=== PATIENT | male | born 1950 | race Caucasian/White ===

== ENCOUNTER 2017-02-12 08:49 | Day surgery (SDC) | payer OTHER ==
[2017-02-11 11:40] VITALS: Ht 175.3 cm; Wt 90.0 kg
[~2017-02-12] VITALS: Ht 175.3 cm; Wt 90.0 kg
[2017-02-12] VITALS (14 sets, daily range): BP systolic 117–151; BP diastolic 63–75; PULSE 70–90; RESP 13–26
[~2017-02-12 08:49] MED LIST: DESFLURANE 15 MIN ONE
[2017-02-12] MEDS ORDERED: CEFAZOLIN 2 GM/50 ML (PMX) 50 ML IVPB ONE (09:00)
[2017-02-12] MEDS ORDERED: LACTATED RINGER'S 1,000 ML IV* ONE (09:00)
[2017-02-12] MEDS ORDERED: LISI40TA9 PO (09:20)
[2017-02-12] MEDS ORDERED: METO50TA16 PO (09:20)
[2017-02-12] MEDS ORDERED: POLYMYXIN/BACITRACIN 1L IRRIG ONE (10:48)
[2017-02-12] MEDS ORDERED: METOCLOPRAMIDE 10 MG INJ ONE (11:34)
[2017-02-12] MEDS ORDERED: MIDAZOLAM 1 MG/ML 2 ML INJ ONE (11:34)
[2017-02-12] MEDS ORDERED: KETOROLAC 30 MG INJ ONE ×2 (11:35→12:31)
[2017-02-12] MEDS ORDERED: PROPOFOL 20 ML ONE ×2 (11:35→12:06)
--- NOTE | 2017-02-12 11:35 | HPN ---
Date/Time of Note Date/Time of Note DATE: 02/12/17 TIME: 11:34 Interval H&P Admission Note Pt. seen H&P reviewed: No system changes MIKO HAYNES MD Feb 12, 2017 11:35
[2017-02-12] MEDS ORDERED: FENTAnyl 50 MCG/ML VIAL ONE (11:40)
[2017-02-12] MEDS ORDERED: CEFAZOLIN 1 GM INJ ONE (11:47)
[2017-02-12] MEDS ORDERED: EPHEDrine SULFATE 50 MG/5 ML SYG ONE (12:09)
[2017-02-12] MEDS ORDERED: MEPERIDINE 25 MG INJ IV PRN (12:30)
[2017-02-12] MEDS ORDERED: DIPHENHYDRAMINE 50 MG INJ IV PRN (12:30)
[2017-02-12] MEDS ORDERED: HYDROmorphONE (0.2 MG/ML) 10ML SYG IV PRN ×3 (12:30)
[2017-02-12] MEDS ORDERED: ONDANSETRON 4 MG INJ IV PRN ×2 (12:30→13:00)
[2017-02-12] MEDS ORDERED: METOCLOPRAMIDE 10 MG INJ IV PRN (12:30)
[2017-02-12] MEDS ORDERED: BUPIVACAINE 0.25%/EPI (SDV) 30 ML INJ ONE (12:37)
[2017-02-12] MEDS ORDERED: LIDOCAINE 1% (MPF) 30 ML INJ ONE (12:37)
[2017-02-12] MEDS ORDERED: LACTATED RINGER'S 1,000 ML IV SCH (12:53)
[2017-02-12] MEDS ORDERED: HYDROCODONE/APAP (5/325) TAB PO PRN ×2 (13:00)
[2017-02-12] MEDS ORDERED: morphine 2 MG INJ IV PRN (13:00)
--- NOTE | 2017-02-12 13:06 | OPR ---
Date/Time of Note Date/Time of Note DATE: 02/12/17 TIME: 12:58 Operative Report Procedure Date: Feb 12, 2017 Preoperative Diagnosis Right buttock chronic nonhealing ulcer with history of abscess that was drained in the past Postoperative Diagnosis Right buttock chronic nonhealing ulcer with history of abscess that was drained in the past. 4 x 3 x 5 cm Operation Performed 1. Excision of right buttock chronic ulcer including skin subcutaneous and fascia. 4 x 3 cm. 2. Multilayer closure of wound including fascia, 2 layers subcutaneous, dermal , skin 3. Local anesthetic [place], [id number] Surgeon: MIKO HAYNES MD Anesthesia: other (MAC and local) Anesthesiologist: CHRISTIANO DENT MD Estimated Blood Loss: 0 - 10 ml's Specimens Ulcer Tubes/Drains None Complications: None Pt Condition Post Procedure: stable Disposition: PACU Indications Patient with history of abscess that was drained in an outside hospital who presents with a chronic nonhealing right buttock ulcer. After multiple treatments she is now here for attempt at excision of the ulcer with primary closure. Risks include but are not limited to bleeding, infection, abscess, seroma, chronic wound, chronic pain, need for re-operations or further surgeries, ND, stroke, PE, DVT, pneumonia, organ failures, or even . Procedure Description Patient was brought in and placed supine on the operating table. SCDs were placed. After induction of anesthesia he was placed in the lateral decubitus with the right side up. All pressure points were well-padded. He was prepped and draped in usual sterile fashion. Timeout was performed. He artery received antibiotics. Probe was placed into the chronic ulcer and using electrocautery the ulcer was excised out fully including skin, subcutaneous, and fascia. Wound was fully irrigated with saline to clear suction and fluid. Complete hemostasis was obtained. Local anesthetic was injected at all levels. Wound was closed in multiple layers including fascia with 2-0 Vicryl followed by 2 layers of subcutaneous using the same suture. Dermal stitches were placed using 2-0 Vicryl again and finally skin was closed with vertical mattress 0 nylon. Dressing was applied. Patient was recovered and taken back to recovery room in stable condition. All counts were correct at the end the operation 2. MIKO HAYNES MD Feb 12, 2017 13:05
== END 2017-02-12 14:35 | disposition home or self-care (01) ==
LOC: SDS 08:49
PROVIDERS: ATTEND Surgery
DX: L90.5 Scar conditions and fibrosis of skin (principal); L98.419 Non-pressure chronic ulcer of buttock with unspecified severity; I10 Essential (primary) hypertension; E66.9 Obesity, unspecified; Z68.29 Body mass index [BMI] 29.0-29.9, adult
CPT/HCPCS: 11406; 12031; 88304; J0690; J1885; J2250; J2765; J3010; Z7512; Z7610

== ENCOUNTER 2017-02-28 09:20 | Inpatient (IN) | payer OTHER ==
[~2017-02-28] VITALS: Ht 172.7 cm; Wt 92.0 kg
[2017-02-28] VITALS (16 sets, daily range): BP systolic 92–137; BP diastolic 58–78; PULSE 58–82; RESP 15–27; TEMP 98.1; Ht 172.7 cm; Wt 92.0 kg
[~2017-02-28 09:20] MED LIST changes: -DESFLURANE 15 MIN ONE; +LIDOCAINE 2% (SDV) 5 ML INJ ONE; +LISI40TA9 PO; +METO50TA16 PO; +PROPOFOL 200 MG INJ ONE; +ROCURONIUM 50 MG INJ ONE; +SUCCINYLCHOLINE CHLORIDE 100 MG/5 ML SYG IV ONE
[2017-02-28] MEDS ORDERED: ONDANSETRON 4 MG INJ IV STA (10:36)
[2017-02-28 10:58] LABS: ADD SCAN DIFF NO
[2017-02-28] MEDS ORDERED: SOD CHLORIDE 0.9% 1,000 ML IV ONE (11:00)
[2017-02-28] MEDS ORDERED: morphine 10 MG INJ IV ONE (11:00)
[2017-02-28 11:03] LABS: ABNORMAL IP MESSAGE 1; BASOPHIL # 0.1 10^3/ul (0.0-0.1); BASOPHILS % 0.3 % (0.0-2.0); EOSINOPHILS # 1.3 10^3/ul (0.0-0.5); EOSINOPHILS % 5.9 % (0.0-7.0); HEMATOCRIT 50.1 % (42.0-52.0); HEMOGLOBIN 17.2 g/dl (14.0-18.0); LYMPHOCYTES # 3.5 10^3/ul (0.8-2.9); LYMPHOCYTES % 15.8 % (15.0-51.0); MEAN CORPUSCULAR HEMOGLOBIN 31.4 pg (29.0-33.0); MEAN CORPUSCULAR HGB CONC 34.3 g/dl (32.0-37.0); MEAN CORPUSCULAR VOLUME 91.6 fl (82.0-101.0); MEAN PLATELET VOLUME 9.4 fl (7.4-10.4); MONOCYTE # 2.5 10^3/ul (0.3-0.9); MONOCYTES % 11.3 % (0.0-11.0); NEUTROPHIL # 14.8 10^3/ul (1.6-7.5); NEUTROPHILS % 66.1 % (39.0-77.0); PLATELET COUNT 220 10^3/UL (140-415); RED BLOOD COUNT 5.47 10^6/ul (4.70-6.10); RED CELL DISTRIBUTION WIDTH 14.4 % (11.5-14.5); WHITE BLOOD COUNT 22.4 10^3/ul (4.8-10.8)
[2017-02-28 11:12] LABS: ALBUMIN 4.3 g/dl (3.3-4.9)
[2017-02-28 11:13] LABS: POTASSIUM 4.4 mmol/L (3.5-5.1)
[2017-02-28 11:15] LABS: BILIRUBIN,INDIRECT 1.9 mg/dl (0-1.1); BILIRUBIN,TOTAL 1.9 mg/dl (0.2-1.3); CREATININE 1.1 mg/dl (0.61-1.24)
[2017-02-28 11:16] LABS: ALBUMIN/GLOBULIN RATIO 1.34; CALCIUM 9.1 mg/dl (8.4-10.2); TOTAL PROTEIN 7.5 g/dl (6.1-8.1)
[2017-02-28] MEDS ORDERED: CEFEPIME 2GM/50 ML (PMX) 50 ML IVPB STA (11:25)
[2017-02-28] MEDS ORDERED: VANCOMYCIN 1 GM (PMX) 250 ML IVPB ONE (11:30)
[2017-02-28 11:36] LABS: ADD UMIC NO; URINE BILIRUBIN (Dip) NEGATIVE (NEGATIVE); URINE BLOOD (Dip) NEGATIVE (NEGATIVE); URINE COLOR LT. YELLOW (YELLOW); URINE GLUCOSE (Dip) NEGATIVE (NEGATIVE); URINE KETONES (Dip) NEGATIVE (NEGATIVE); URINE LEUKOCYTE ESTERASE (Dip) NEGATIVE (NEGATIVE); URINE NITRITE (Dip) NEGATIVE (NEGATIVE); URINE TOTAL PROTEIN (Dip) NEGATIVE (NEGATIVE); URINE UROBILINOGEN (Dip) 0.2 E.U./dL (0.1-1.0)
[2017-02-28] MEDS ORDERED: IOHEXOL 300MG/ML 150 ML BTL ONE (11:45)
[2017-02-28] MEDS ORDERED: SOD CHLORIDE 0.9% 100 ML ONE (11:45)
[2017-02-28] MEDS ORDERED: ACETAMINOPHEN 325 MG TAB PO PRN ×2 (12:00→17:30)
[2017-02-28] MEDS ORDERED: ONDANSETRON 4 MG INJ IV PRN ×4 (12:00→17:30)
--- NOTE | 2017-02-28 12:09 | ERA ---
ER Documentation Chief Complaint Date/Time DATE: 02/28/17 TIME: 12:09 Chief Complaint pt bib self with c/o wound check , abscess drained to buttock, HPI Patient is a 66-year-old male who presents with redness and swelling to the right buttock. He has been dealing with this for a few months and had a incision and drainage performed by Dr. Christian on February 12. However it has gotten worse and more swollen over the past few days. He has had fevers that started yesterday and he continued with fever today. He took Tylenol for the fever. It is painful and hurts to sit on it. ROS All systems reviewed and are negative except as per history of present illness. Medications Home Meds Reported Medications Lisinopril* (Lisinopril*) 40 Mg Tablet, 40 MG PO DAILY, #30 TAB 02/12/17 Metoprolol Succinate* (Toprol XL*) 50 Mg Tab.er.24h, 50 MG PO DAILY, #30 TAB 02/12/17 Allergies Allergies: Coded Allergies: No Known Allergy (Unverified , 02/11/17) PMhx/Soc History of Surgery: Yes (CHOLECYSTECTOMY,RT BUTTOCK WOUND SURGERY) Anesthesia Reaction: No Hx Neurological Disorder: No Hx Respiratory Disorders: No Hx Cardiac Disorders: Yes (HTN) Hx Psychiatric Problems: No Hx Miscellaneous Medical Probl: Yes (OBESITY) Hx Alcohol Use: No Hx Substance Use: No Hx Tobacco Use: No Smoking Status: Never smoker FmHx Family History: No diabetes Physical Exam Vitals Vital Signs Date Time Temp Pulse Resp B/P Pulse Ox O2 Delivery O2 Flow Rate FiO2 02/28/17 09:24 98.3 84 18 146/70 98 Physical Exam Const: No acute distress Head: Atraumatic Eyes: Normal Conjunctiva ENT: Normal External Ears, Nose and Mouth. Neck: Full range of motion..~ No meningismus. Resp: Clear to auscultation bilaterally Cardio: Regular rate and rhythm, no murmurs Abd: Soft, non tender, non distended. Normal bowel sounds Skin: 10 x 10 cm area of the right buttock which is indurated, no obvious fluctuance consistent with cellulitis Back: No midline or flank tenderness Ext: No cyanosis, or edema Neur: Awake and alert Psych: Normal Mood and Affect Result Diagram: 02/28/17 1045 02/28/17 1045 Results 24 hrs Laboratory Tests Test 02/28/17 10:45 White Blood Count 22.410^3/ul Red Blood Count 5.4710^6/ul Hemoglobin 17.2g/dl Hematocrit 50.1% Mean Corpuscular Volume 91.6fl Mean Corpuscular Hemoglobin 31.4pg Mean Corpuscular Hemoglobin Concent 34.3g/dl Red Cell Distribution Width 14.4% Platelet Count 23200^3/UL Mean Platelet Volume 9.4fl Neutrophils % 66.1% Lymphocytes % 15.8% Monocytes % 11.3% Eosinophils % 5.9% Basophils % 0.3% Nucleated Red Blood Cells % 0.0/100WBC Neutrophils # 14.810^3/ul Lymphocytes # 3.510^3/ul Monocytes # 2.510^3/ul Eosinophils # 1.310^3/ul Basophils # 0.110^3/ul Nucleated Red Blood Cells # 0.010^3/ul Urine Color LT. YELLOW Urine Clarity CLEAR Urine pH 5.5 Urine Specific [place] <=1.005 Urine Ketones NEGATIVE Urine Nitrite NEGATIVE Urine Bilirubin NEGATIVE Urine Urobilinogen 0.2 E.U./dL Urine Leukocyte Esterase NEGATIVE Urine Hemoglobin NEGATIVE Urine Glucose NEGATIVE% Urine Total Protein NEGATIVE Sodium Level 138mmol/L Potassium Level 4.4mmol/L Chloride Level 97mmol/L Carbon Dioxide Level 27mmol/L Anion Gap 18 Blood Urea Nitrogen 17mg/dl Creatinine 1.10mg/dl Glucose Level 117mg/dl Calcium Level 9.1mg/dl Total Bilirubin 1.9mg/dl Direct Bilirubin 0.00mg/dl Indirect Bilirubin 1.9mg/dl Aspartate Amino Transf (AST/SGOT) 39IU/L Alanine Aminotransferase (ALT/SGPT) 66IU/L Alkaline Phosphatase 74IU/L Total Protein 7.5g/dl Albumin 4.3g/dl Globulin 3.20g/dl Albumin/Globulin Ratio 1.34 Current Medications Medications (Trade) Dose Ordered Sig/Amie Route PRN Reason Start Time Stop Time Status Last Admin Dose Admin Sodium Chloride (NS) 1,000 ml @ 1,000 mls/hr Q1H ONCE IV 02/28/17 11:00 02/28/17 11:59 DC 02/28/17 10:49 Morphine Sulfate (morphine) 6 mg ONCE ONCE IV 02/28/17 11:00 02/28/17 11:01 DC 02/28/17 10:49 Ondansetron HCl 4 mg 4 mg ONCE STAT IV 02/28/17 10:36 02/28/17 10:38 DC 02/28/17 10:49 Cefepime HCl 50 ml @ 100 mls/hr ONCE STAT IVPB 02/28/17 11:25 02/28/17 11:54 DC 02/28/17 11:33 Vancomycin HCl (Vancocin) 250 ml @ 125 mls/hr ONCE ONCE IVPB 02/28/17 11:30 02/28/17 13:29 Ondansetron HCl (Zofran Inj) 4 mg BRIDGE ORDER PRN IV NAUSEA AND/OR VOMITING 02/28/17 12:00 03/01/17 11:59 Acetaminophen (Tylenol Tab) 650 mg ER BRIDGE PRN PO MILD PAIN/FEVER 02/28/17 12:00 03/01/17 11:59 IV Flush 10 ml 10 ml STK-MED ONCE .ROUTE 02/28/17 11:45 02/28/17 11:46 DC 02/28/17 12:03 Sodium Chloride (NS) 100 ml @ ud STK-MED ONCE .ROUTE 02/28/17 11:45 02/28/17 11:46 DC 02/28/17 12:03 Iohexol (Omnipaque 300mg/ ml) 150 ml STK-MED ONCE .ROUTE 02/28/17 11:45 02/28/17 11:46 DC 02/28/17 12:04 Procedures/MDM Patient is a 66-year-old male presents with a persistent buttock cellulitis. The patient has an elevated white blood cell count of 22.4. At this point I doubt sepsis. The patient was given broad-spectrum antibiotics with vancomycin and cefepime. I spoke with Dr. Christian from surgery who will see the patient in consultation. He recommended a CT scan to evaluate for persistent abscess. I also ordered an ultrasound. The patient will be admitted to the panel team as he [facility] I spoke with Dr. Egnland for admission. He will require inpatient admission for IV antibiotics and surgical consultation. Departure Diagnosis: Primary Impression: Cellulitis Qualified Code: L03.317 - Cellulitis of buttock Condition: EZEQUIEL Poole MD Feb 28, 2017 12:09
--- NOTE | 2017-02-28 12:21 | RADRPT ---
PROCEDURE: CT Abdomen and Pelvis with contrast. CLINICAL INDICATION: Pain. Wound/ drained abscess in the right buttock. TECHNIQUE: CT scan of the abdomen and pelvis with contrast was performed on a multi-detector high- resolution CT scanner. The patient was scanned following the uncomplicated intravenous administrati on of 100 cc of Omnipaque 300. Coronal and sagittal reformatted images were obtained from the axial source images. Images were reviewed on a high-resolution PACS workstation. The total exam CTDI equa ls 13.71 mGy and the total exam DLP equals 940.81 mGy-cm. One or more of the following dose reduction techniques were used: Automated exposure control. Adjustment of the mA and/or kV according to patient size. Use of iterative reconstruction technique. COMPARISON: None. FINDINGS: CT abdomen: The lung bases are remarkable for posterior dependent atelectasis. The heart size is normal, withou t pericardial thickening or effusion. The liver is normal in size and density without focal mass or intrahepatic biliary dilatation. The spleen is normal in size and homogeneous in density. The sto mach is partially collapsed, but is grossly unremarkable. The pancreas as visualized is normal. Th ere are surgical clips in the gallbladder fossa. There is approximately 1.5 cm hyperdense structure in the gallbladder fossa. There is no fluid collection in the surgical bed. There is no evidence fo r biliary dilatation. The adrenal glands are symmetric and normal. The kidneys are symmetrically u nremarkable as well. No renal calculus or obstructive uropathy or mass lesion is seen. There are mu ltiple bilateral renal cysts measures up to 3.5 cm in the lower pole right kidney. The aorta is of normal caliber. Aortic vascular calcifications are present. There is no retroperit warner lymphadenopathy. The dale hepatis region is clear. There is diverticulosis of the descendin g and sigmoid colon without evidence of acute diverticulitis. CT pelvis: There is approximately 4.4 x 3.2 cm fluid collection in the right gluteal region with surrounding fa tty stranding and soft tissue swelling and significant thickening of the overlying skin. Multiple i njection granulomas are seen in the bilateral gluteal regions. The small bowel loops situated with in the pelvis are unremarkable. The pelvic organs are normal. The pelvic sidewalls and inguinal re gions are clear. The sigmoid colon and rectum are remarkable for sigmoid diverticulosis. No mass, lymphadenopathy, or free fluid is seen. No acute inflammation is seen. The bladder is normal. The surrounding osseous structures are unremarkable. No osteolytic or osteoblastic lesion is detected. IMPRESSION: 1. Approximately 4.4 x 3.2 cm fluid collection in the right gluteal region with surrounding subcuta neous fatty inflammation and overlying skin thickening. Multiple injection granulomas are seen in b ilateral gluteal region. Right gluteus tiffany muscle is atrophic. 2. Status post prior cholecystectomy. Approximately 1.5 cm amorphous hyperdense structure in the g allbladder fossa which could represent old hematoma /postsurgical scar versus retained stone. No flu id collection is identified. 3. Diverticulosis of the descending and sigmoid colon without evidence of acute diverticulitis. 4. Bilateral renal cysts. 5. Scattered aortoiliac atherosclerosis. RPTAT: BB .Shira Knowles MD, Date Time Electronically viewed and signed by .Shira Knowles MD, on 02/28/2017 12:21 .O/
--- NOTE | 2017-02-28 13:46 | RADRPT ---
PROCEDURE: Ultrasound right buttocks CLINICAL INDICATION: Fell. Right buttocks ulcer. Cellulitis versus abscess. TECHNIQUE: Sonographic evaluation of the right buttocks was performed with gonzalez scale and color im aging. Images were reviewed on a high-resolution PACS workstation. COMPARISON: None available FINDINGS: There is subcutaneous edema in the right buttocks region. Deep to the subcutaneous tissues there is a 4.9 x 2.5 x 2.5 cm irregular fluid collection with some internal debris noted. No solid mass or vascular abnormality is appreciated IMPRESSION: 1. 4.9 x 2.5 x 2.5 cm subcutaneous collection containing some debris. This could represent a hemat sylvester versus an inflammatory collection. RPTAT: [facility] Physician Margie Date Time Electronically viewed and signed by Physician Margie on 02/28/2017 13:46 /
[2017-02-28] MEDS ORDERED: ALLO100T PO (14:48)
[2017-02-28] MEDS ORDERED: OMEP40CA6 PO (14:49)
--- NOTE | 2017-02-28 15:14 | CONS ---
Date/Time of Note Date/Time of Note DATE: 02/28/17 TIME: 15:06 Assessment/Plan Assessment/Plan Chief Complaint/Hosp Course 1. Right buttock cellulitis and probable abscess -Antibiotics -IV fluids -OR for needle aspiration versus I&D 2. BMI 31 with obesity -Nutrition and exercise optimization encouraged 3. Hypertension -Nutrition medication optimization encouraged -Weight loss encouraged 4. Significant leukocytosis secondary to #1 -As above 5. Hyperbilirubinemia secondary to inflammatory process -Monitor Thank you very much for consulting me in this patient's care, Problems: Consultation Date/Type/Reason Admit Date/Time Feb 28, 2017 at 11:43 Date of Consultation: Feb 28, 2017 Type of Consultation: General surgical Reason for Consultation Right buttock cellulitis and possible abscess Leukocytosis BMI 31 Referring Provider: EZEQUIEL VEE MD Hx of Present Illness Jarrod Ellis is a 66-year-old male with multiple comorbidities. He is well- known to me from initial presentation with a right buttock wound that was I&D data outside hospital a few weeks ago. He had chronic wound that was not healing. Patient was taken to surgery towards the end of January for incision and drainage and debridement of the site. However since the area seemed healthy and clean decision was made to close the wound primarily. Patient did well postoperatively for the first week or so however in the past few days he is gone increasing swelling and fever with pain at the site. He denies any discharge. He is here for further evaluation and treatment. In the emergency room he is found to have stable vitals without fever. His white count is significantly elevated. CT scan shows inflammation and fluid collection. He also have injection granulomas on bilateral buttocks as per CT. he reports those are injections of possible antibiotics or vitamins and other material that is brought over from [place] by a friend of his that he has been doing for a while. He is admitted and surgical consult obtained further evaluation and treatment. Constitutional: chills, febrile, No diaphoresis Eyes: No discharge, No redness ENT: No bleeding, No discharge, No dysphagia Respiratory: No cough, No shortness of breath, No wheezing Cardiovascular: No chest pain, No edema Gastrointestinal: passing stool, No blood, No nausea, No pain, No vomiting Genitourinary: No bleeding, No discharge, No dysuria, No flank pain Musculoskeletal: No back pain, No neck pain, No restricted range of motion Skin: erythema, pruritis, No bruising Neurologic: No confusion, No headache, No syncope Endocrine: No polydypsia, No polyuria Lymphatic: No adenopathy, No tender nodes Psychological: nl mood/affect, No anxiety, No confusion Immunologic: No pruritis, No rhinitis Past Medical History BMI 31 Hypertension Right buttock abscess history status post drainage Right buttock wound secondary to above Acute leukocytosis Acute cellulitis and possible recurrence of abscess, right buttock GERD BPH Renal cysts Acute hyperbilirubinemia Past Surgical History Cholecystectomy I&D of right buttock abscess outside hospital Multiple wound debridements of right buttock Family History Significant Family History: no pertinent family hx Social History Alcohol Use: occasionally Smoking Status: Never smoker Drug Use: none Exam/Review of Systems Vital Signs Vitals Vital Signs Date Time Temp Pulse Resp B/P Pulse Ox O2 Delivery O2 Flow Rate FiO2 02/28/17 14:16 98.6 64 18 132/75 98 Exam Constitutional: alert, obese, oriented, No distress Psych: nl mood/affect, No anxiety, No confusion Head: atraumatic, normocephalic Eyes: EOMI, PERRL, nl conjunctiva, No icteric ENMT: mucosa pink and moist, nl external ears & nose, nl lips & teeth Neck: non-tender, No jvd Respiratory: normal air movement, No congested cough, No labored breathing Cardiovascular: regular rate and rhythm, No edema Gastrointestinal: non-tender, soft, No rebound or guarding Genitourinary - Male: nl penis, nl scrotum Musculoskeletal: nl extremities to inspection, nl gait and stance, No joint tenderness Extremities: normal pulses, No calf tenderness, No cyanosis Neurological: nl mental status, nl speech, nl strength, No confused Skin: nl turgor, rash or lesions (Right buttock blanching erythema), No diaphoresis Lymph: nl lymph nodes Results Result Diagram: 02/28/17 1045 02/28/17 1045 Results 24 hrs Laboratory Tests Test 02/28/17 10:45 White Blood Count 22.4 H Red Blood Count 5.47 Hemoglobin 17.2 Hematocrit 50.1 Mean Corpuscular Volume 91.6 Mean Corpuscular Hemoglobin 31.4 Mean Corpuscular Hemoglobin Concent 34.3 Red Cell Distribution Width 14.4 Platelet Count 220 Mean Platelet Volume 9.4 Neutrophils % 66.1 Lymphocytes % 15.8 Monocytes % 11.3 H Eosinophils % 5.9 Basophils % 0.3 Nucleated Red Blood Cells % 0.0 Neutrophils # 14.8 H Lymphocytes # 3.5 H Monocytes # 2.5 H Eosinophils # 1.3 H Basophils # 0.1 Nucleated Red Blood Cells # 0.0 Urine Color LT. YELLOW Urine Clarity CLEAR Urine pH 5.5 Urine Specific [place] <=1.005 L Urine Ketones NEGATIVE Urine Nitrite NEGATIVE Urine Bilirubin NEGATIVE Urine Urobilinogen 0.2 E.U./dL Urine Leukocyte Esterase NEGATIVE Urine Hemoglobin NEGATIVE Urine Glucose NEGATIVE Urine Total Protein NEGATIVE Sodium Level 138 Potassium Level 4.4 Chloride Level 97 Carbon Dioxide Level 27 Anion Gap 18 H Blood Urea Nitrogen 17 Creatinine 1.10 Glucose Level 117 Calcium Level 9.1 Total Bilirubin 1.9 H Direct Bilirubin 0.00 Indirect Bilirubin 1.9 H Aspartate Amino Transf (AST/SGOT) 39 Alanine Aminotransferase (ALT/SGPT) 66 Alkaline Phosphatase 74 Total Protein 7.5 Albumin 4.3 Globulin 3.20 Albumin/Globulin Ratio 1.34 MIKO HAYNES MD Feb 28, 2017 15:13
[2017-02-28] MEDS ORDERED: FENTAnyl 50 MCG/ML VIAL ONE (16:17)
--- NOTE | 2017-02-28 17:29 | OPR ---
Date/Time of Note Date/Time of Note DATE: 02/28/17 TIME: 17:25 Operative Report Procedure Date: Feb 28, 2017 Preoperative Diagnosis 1. Right buttock cellulitis and possible recurrent abscess 2. BMI 31 3. History of intra-buttock injections by patient of unknown substances Postoperative Diagnosis 1. Right buttock cellulitis and possible recurrent abscess 2. BMI 31 3. History of intra-buttock injections by patient of unknown substances Operation Performed 1. Excisional debridement of right buttock skin subcutaneous muscle and fascia. 7 x 5 cm 2. Incision and drainage of right buttock fluid collection Surgeon: MIKO HAYNES MD Anesthesia: general Anesthesiologist: JESSICA COLEMAN Estimated Blood Loss: 0 - 10 ml's Specimens Culture Tubes/Drains Curlex with beta Complications: None Pt Condition Post Procedure: stable Disposition: PACU Indications Per consult note. Risks include but are not limited to bleeding, infection, abscess, seroma, chronic pain, need for re-operations or further surgeries, CA, stroke, PE, DVT, pneumonia, organ failures, or even . Procedure Description Patient was brought in on his own bed to the OR. Placed in lateral decubitus position. All pressure points were well-padded. Patient is already on antibiotics. Anesthesia was instituted. Timeout was performed. He was prepped and draped in usual sterile fashion. Previous sutures were removed. Needle aspiration was performed which identified murky fluid and that was sent to culture. Using scalpel the fluid collection was entered and drained. Using electrocautery skin, subcutaneous, and devitalized muscle and fascia were excised down to healthier tissue. Hemostasis was obtained. Wound was irrigated and packed with Betadine soaked Kerlix. Dry dressing was applied. Patient was taken back to recovery room in stable condition. All counts were correct at the end of the operation 2. MIKO HAYNES MD Feb 28, 2017 17:29
[2017-02-28] MEDS ORDERED: DOCUSATE SODIUM 100 MG CAP PO PRN (17:30)
[2017-02-28] MEDS ORDERED: METOCLOPRAMIDE 10 MG INJ IV PRN (17:30)
[2017-02-28] MEDS ORDERED: HYDROmorphONE (0.2 MG/ML) 10ML SYG IV PRN ×3 (17:30)
[2017-02-28] MEDS ORDERED: BISACODYL 10 MG SUPP PR PRN (17:30)
[2017-02-28] MEDS ORDERED: MEPERIDINE 25 MG INJ IV PRN (17:30)
[2017-02-28] MEDS ORDERED: HYDROmorphONE 1 MG/ML SYG IV PRN (17:30)
[2017-02-28] MEDS ORDERED: HYDROCODONE/APAP (5/325) TAB PO PRN ×3 (17:30)
[2017-02-28] MEDS ORDERED: BISACODYL (EC) 5 MG TAB PO PRN (17:30)
[2017-02-28] MEDS ORDERED: FENTAnyl 50 MCG/ML VIAL IV PRN ×2 (17:30)
[2017-02-28] MEDS ORDERED: DIPHENHYDRAMINE 50 MG INJ IV PRN (17:30)
[2017-02-28] MEDS ORDERED: NACL 0.9% 3 ML SYG IV SCH (17:30)
[2017-02-28] MEDS ORDERED: PIPER-TAZO 3.375 GM IV (PMX) 100 ML IVPB SCH (18:00)
--- NOTE | 2017-02-28 18:32 | HP ---
DATE OF ADMISSION: 02/28/2017 CONSULTANTS: Dr. Chente Christian. CHIEF COMPLAINT: Right buttock abscess. HISTORY OF PRESENT ILLNESS: This is a pleasant 66-year-old gentleman with past medical history of g out, arthritis, hypertension and GERD who has been having right buttock abscess and cellulitis since April and he had I and D on 02/12/2017. He returns back to the hospital today on 02/28/2017 seconda ry to recurrence of the right buttock abscess. Upon arrival to the emergency room, the patient had a CT of the abdomen and pelvis which showed approximately 4.4 to 3.7 cm fluid collection in the righ t gluteal region with surrounding subcutaneous fatty inflammation, overlying skin thickening, multip le injection granulomas are seen in the bilateral gluteal region. Right gluteus tiffany muscle is a trophic. Patient is status post cholecystectomy, diverticulosis of the descending sigmoid colon wit hout evidence of diverticulitis. General surgery was consulted. The patient was treated with cefep carlos and vancomycin in the course of the emergency room. As per evaluation of general surgery, the p atient was taken to OR for I and D of the abscess. At this time, the patient is lying in bed comfor tably without any distress. He is awake, alert, oriented. He is able to answer my questions proper ly. He denies any chest pain, shortness of breath, nausea, vomiting, diarrhea. No headache, dizzin ess, lightheadedness. No change in visual acuity, diplopia, photophobia. No neck pain, no restrict ed range of motion. No sore throat or any other discomfort except right buttocks pain. PAST MEDICAL AND SURGICAL HISTORY: As above per HPI. MEDICATIONS: 1. Allopurinol. 2. Lisinopril. 3. Metoprolol. 4. Esomeprazole. ALLERGIES: NO KNOWN DRUG ALLERGIES. FAMILY HISTORY: Noncontributory. SOCIAL HISTORY: Negative for smoking, alcohol, illicit drugs. He is a petroleum laboratory technician. REVIEW OF SYSTEMS: As above per HPI, otherwise 12 review of systems was found to be negative. PHYSICAL EXAMINATION: VITAL SIGNS: Temperature 97.8, pulse 64, respiration 24, blood pressure 142/75, oxygen 98% in room air. GENERAL APPEARANCE: Patient is lying in bed comfortably without any distress. He is awake, alert, oriented. He is able to answer my questions properly. EYES AND ENT: Conjunctivae and lids are normal. Pupils are normal. Extraocular movements normal. Hearing grossly normal. Lips, teeth and gums are normal. Oral mucosa is moist. NECK: Supple. Trachea is midline. No lymphadenopathy. RESPIRATORY: Effort is normal. Clear to auscultate bilaterally. CARDIOVASCULAR: Normal S1, S2. Regular rhythm and rate. No murmur, no bruits, no edema. Peripher al pulses and radial pulses palpable. Capillary refill is normal. CHEST: Normal expansion of thorax during inspiration. GASTROINTESTINAL: Abdomen is soft, nontender, not distended. Bowel sounds present. No guarding, n o rebound. GENITOURINARY: Deferred. The right buttocks, status post incision and drainage and is packed. Mil dly tender. No evidence of hematoma. MUSCULOSKELETAL: Upper and lower extremities within normal limits except the right buttock post-tuan gical finding. NEUROLOGIC: Cranial nerves II through XII are grossly intact. PSYCHIATRIC: He is awake, alert, oriented. LABORATORY WORK AND IMAGING: WBC 2.4, hemoglobin 17.3, hematocrit 50.1, platelets 220. Sodium 138, potassium 4.4, chloride 97, bicarbonate 27, BUN 17, creatinine 1.0. Glucose 117, total bilirubin 1 .9, indirect bilirubin 1.9. ASSESSMENT AND PLAN: 1. Right buttock abscess. The patient is status post incision and drainage of the right buttocks a nd has been started on Zosyn and Levaquin. General surgery has been consulted. We will follow up h is recommendation and will continue postop care. 2. Essential hypertension, well controlled on medical management. Continue lisinopril and metoprol ol. 3. Gout. Continue allopurinol. 4. Gastroesophageal reflux disease. Continue PPI. 5. We will continue to monitor patient closely. Further recommendations, management and treatment as per clinical course. Dictated By: EL TORRES/TRISTAN Conf#: [id number] DID#: [id number]
[2017-02-28] MEDS: LEVOFLOXACIN 500MG/D5W (PMX) 100 ML IVPB SCH (19:02)
[2017-02-28] MEDS: 1/2 NS + KCL 20 MEQ 1,000 ML IV SCH (19:02)
[2017-02-28] MEDS: LISINOPRIL 10 MG TAB PO SCH (19:09)
[2017-02-28] MEDS: PIPER-TAZO 3.375 GM IV (PMX) 100 ML IVPB SCH (21:15)
[2017-03-01] MEDS: PIPER-TAZO 3.375 GM IV (PMX) 100 ML IVPB SCH ×3 (05:36→21:41)
[2017-03-01] MEDS: PANTOPRAZOLE (EC) 40 MG TAB PO SCH (05:36)
[2017-03-01] MEDS: 1/2 NS + KCL 20 MEQ 1,000 ML IV SCH ×2 (05:54→13:37)
[2017-03-01 06:45] LABS: ADD SCAN DIFF NO
[2017-03-01 07:20] LABS: BASOPHIL # 0.1 10^3/ul (0.0-0.1); BASOPHILS % 0.3 % (0.0-2.0); EOSINOPHILS # 1.2 10^3/ul (0.0-0.5); EOSINOPHILS % 8.4 % (0.0-7.0); HEMATOCRIT 46.5 % (42.0-52.0); LYMPHOCYTES # 1.9 10^3/ul (0.8-2.9); LYMPHOCYTES % 13.1 % (15.0-51.0); MEAN CORPUSCULAR HEMOGLOBIN 31.3 pg (29.0-33.0); MEAN CORPUSCULAR HGB CONC 34.4 g/dl (32.0-37.0); MEAN PLATELET VOLUME 9.9 fl (7.4-10.4); MONOCYTE # 1.2 10^3/ul (0.3-0.9); MONOCYTES % 8.1 % (0.0-11.0); NEUTROPHIL # 10.2 10^3/ul (1.6-7.5); NEUTROPHILS % 69.6 % (39.0-77.0); PLATELET COUNT 192 10^3/UL (140-415); RED BLOOD COUNT 5.11 10^6/ul (4.70-6.10); RED CELL DISTRIBUTION WIDTH 14.1 % (11.5-14.5); WHITE BLOOD COUNT 14.7 10^3/ul (4.8-10.8)
[2017-03-01 07:22] LABS: ALBUMIN 3.3 g/dl (3.3-4.9); ALBUMIN/GLOBULIN RATIO 1.06; BILIRUBIN,INDIRECT 0.9 mg/dl (0-1.1); BILIRUBIN,TOTAL 0.9 mg/dl (0.2-1.3); CALCIUM 8.5 mg/dl (8.4-10.2); CREATININE 1.05 mg/dl (0.61-1.24); POTASSIUM 4.1 mmol/L (3.5-5.1); TOTAL PROTEIN 6.4 g/dl (6.1-8.1)
[2017-03-01 07:26] LABS: CHOL/HDL RATIO 2.3 RATIO; MAGNESIUM 1.8 mg/dl (1.7-2.5)
[2017-03-01 08:16] VITALS: BP 128/72; RESP 18
[2017-03-01] MEDS: ALLOPURINOL 100 MG TAB PO SCH (08:18)
[2017-03-01] MEDS: METOPROLOL (XL) 25 MG TAB PO SCH (08:18)
[2017-03-01] MEDS: LISINOPRIL 10 MG TAB PO SCH (08:18)
--- NOTE | 2017-03-01 15:16 | PN ---
Date/Time of Note Date/Time of Note DATE: 03/01/17 TIME: 15:14 Assessment/Plan VTE Prophylaxis VTE Prophylaxis Intervention: SCD's Lines/Catheters IV C[facility]ter Type (from [facility]): Peripheral IV Urinary Cath still in place: No Assessment/Plan Chief Complaint/Hosp Course ASSESSMENT AND PLAN: 1. Right buttock abscess. The patient is status post incision and drainage of the right buttocks and has been started on Zosyn and Levaquin. General surgery has been consulted. We will follow up his recommendation and will continue postop care. 2. Essential hypertension, well controlled on medical management. Continue lisinopril and metoprolol. 3. Gout. Continue allopurinol. 4. Gastroesophageal reflux disease. Continue PPI. We will continue to monitor patient closely. Further recommendations, management and treatment as per clinical course. Problems: Subjective 24 Hr Interval Summary Free Text/Dictation Denies of any chest pain or shortness of breath Minimal pain in the right gluteal No nausea vomiting diarrhea Exam/Review of Systems Vital Signs Vitals Vital Signs Date Time Temp Pulse Resp B/P Pulse Ox O2 Delivery O2 Flow Rate FiO2 03/01/17 08:16 100.3 86 18 128/72 95 02/28/17 17:54 Room Air 02/28/17 17:14 6.0 Intake and Output 02/28/17 02/28/17 03/01/17 15:00 23:00 07:00 Intake Total 1050 ml 900 ml 1340 ml Output Total 310 ml Balance 1050 ml 590 ml 1340 ml Exam General: The patient is well-developed, Not in acute distress. HEENT: Atraumatic, normocephalic. The pupils are equal and round . Neck: Supple with full range of motion. Chest: Normal expansion of the thorax during inspiration Lungs: Clear to auscultation bilaterally Heart: Normal S1-S2, Regular rhythm and rate. Abdomen: Soft , nontender, nondistended , bowel sounds are present. Extremities: Normal to inspection, no edema no cyanosis Neurologic: Normal mental status,The patient is awake, alert and oriented . Genitourinary/lower back: Surgical site is dry and clean status post I&D surgical site is packed with dry dressing Results Result Diagram: 03/01/17 0500 03/01/17 0500 Results 24 hrs Laboratory Tests Test 03/01/17 05:00 White Blood Count 14.7 #H Red Blood Count 5.11 Hemoglobin 16.0 Hematocrit 46.5 Mean Corpuscular Volume 91.0 Mean Corpuscular Hemoglobin 31.3 Mean Corpuscular Hemoglobin Concent 34.4 Red Cell Distribution Width 14.1 Platelet Count 192 Mean Platelet Volume 9.9 Neutrophils % 69.6 Lymphocytes % 13.1 L Monocytes % 8.1 Eosinophils % 8.4 H Basophils % 0.3 Nucleated Red Blood Cells % 0.0 Neutrophils # 10.2 H Lymphocytes # 1.9 Monocytes # 1.2 H Eosinophils # 1.2 H Basophils # 0.1 Nucleated Red Blood Cells # 0.0 Sodium Level 133 L Potassium Level 4.1 Chloride Level 101 Carbon Dioxide Level 23 Anion Gap 13 Blood Urea Nitrogen 12 Creatinine 1.05 Glucose Level 110 Hemoglobin A1c 5.3 Calcium Level 8.5 Magnesium Level 1.8 Total Bilirubin 0.9 Direct Bilirubin 0.00 Indirect Bilirubin 0.9 Aspartate Amino Transf (AST/SGOT) 37 Alanine Aminotransferase (ALT/SGPT) 53 Alkaline Phosphatase 80 Total Protein 6.4 # Albumin 3.3 # Globulin 3.10 Albumin/Globulin Ratio 1.06 Triglycerides Level 87 Cholesterol Level 92 L LDL Cholesterol, Calculated 35 HDL Cholesterol 40 Cholesterol/HDL Ratio 2.3 Medications Medications Current Medications Hydromorphone HCl 0.5 mg 0.5 mg Q2H PRN IV Breakthrough PAIN; Start 02/28/17 at 17:30 Piperacillin Sod/ Tazobactam Sod 100 ml @ 200 mls/hr Q8 IVPB Last administered on 03/01/17 13:36; Admin Dose 200 MLS/HR; Start 02/28/17 at 22:00 Levofloxacin/ Dextrose 100 ml @ 100 mls/hr Q24H IVPB Last administered on 19:02; Admin Dose 100 MLS/HR; Start 02/28/17 at 18:00 Potassium Chloride/Sodium Chloride (1/2 NS + KCl 20 Meq) 1,000 ml @ 75 mls/hr [id number] IV Last administered on 03/01/17 13:37; Admin Dose 75 MLS/HR; Start 02/28/17 at 17:30 Ondansetron HCl (Zofran Inj) 4 mg Q6H PRN IV NAUSEA AND/OR VOMITING; Start 02/28 at 17:30 Acetaminophen (Tylenol Tab) 650 mg Q6H PRN PO PAIN LEVEL 1-3 OR FEVER; Start at 17:30 Acetaminophen/ Hydrocodone Bitart ([place] (5/325)) 1 tab Q6H PRN PO MODERATE PAIN LEVEL 4-6; Start 02/28/17 at 17:30 Morphine Sulfate (morphine) 2 mg Q4H PRN IV SEVERE PAIN LEVEL 7-10; Start at 17:30 Docusate Sodium (Colace) 100 mg Q12H PRN PO CONSTIPATION; Start 02/28/17 at 17: 30 Bisacodyl (Dulcolax) 5 mg DAILY PRN PO CONSTIPATION; Start 02/28/17 at 17:30 Bisacodyl (Dulcolax Supp) 10 mg DAILY PRN [place] CONSTIPATION; Start 02/28/17 at 17: 30 Pantoprazole (Protonix Tab) 40 mg DAILY@06 PO Last administered on 03/01/17 05: 36; Admin Dose 40 MG; Start 03/01/17 at 06:00 Allopurinol (Zyloprim) 100 mg DAILY PO Last administered on 03/01/17 08:18; Admin Dose 100 MG; Start 03/01/17 at 09:00 Lisinopril (Zestril) 10 mg DAILY PO Last administered on 03/01/17 08:18; Admin Dose 10 MG; Start 02/28/17 at 18:30 Metoprolol Succinate (Toprol Xl) 25 mg DAILY PO Last administered on 03/01/17 08:18; Admin Dose 25 MG; Start 03/01/17 at 09:00 EL KING MD Mar 01, 2017 15:16
[2017-03-01] MEDS: LEVOFLOXACIN 500MG/D5W (PMX) 100 ML IVPB SCH (17:50)
[2017-03-01 19:51] VITALS: BP 129/71; RESP 20
[2017-03-01] MEDS: morphine 2 MG INJ IV PRN (21:41)
[2017-03-02 05:23] LABS: ADD SCAN DIFF NO
[2017-03-02 05:28] LABS: BASOPHILS % 0.4 % (0.0-2.0); EOSINOPHILS # 1.3 10^3/ul (0.0-0.5); EOSINOPHILS % 12.5 % (0.0-7.0); HEMATOCRIT 45.9 % (42.0-52.0); HEMOGLOBIN 16.2 g/dl (14.0-18.0); LYMPHOCYTES # 1.9 10^3/ul (0.8-2.9); LYMPHOCYTES % 17.7 % (15.0-51.0); MEAN CORPUSCULAR HEMOGLOBIN 31.8 pg (29.0-33.0); MEAN CORPUSCULAR HGB CONC 35.3 g/dl (32.0-37.0); MEAN CORPUSCULAR VOLUME 90.2 fl (82.0-101.0); MEAN PLATELET VOLUME 9.6 fl (7.4-10.4); MONOCYTE # 0.9 10^3/ul (0.3-0.9); MONOCYTES % 8.1 % (0.0-11.0); NEUTROPHIL # 6.5 10^3/ul (1.6-7.5); NEUTROPHILS % 60.7 % (39.0-77.0); PLATELET COUNT 194 10^3/UL (140-415); RED BLOOD COUNT 5.09 10^6/ul (4.70-6.10); RED CELL DISTRIBUTION WIDTH 13.7 % (11.5-14.5); WHITE BLOOD COUNT 10.6 10^3/ul (4.8-10.8)
[2017-03-02 05:54] LABS: POTASSIUM 4.1 mmol/L (3.5-5.1)
[2017-03-02 05:56] LABS: CREATININE 1.11 mg/dl (0.61-1.24)
[2017-03-02 05:57] LABS: CALCIUM 8.7 mg/dl (8.4-10.2)
[2017-03-02] MEDS: PANTOPRAZOLE (EC) 40 MG TAB PO SCH (06:07)
[2017-03-02] MEDS: PIPER-TAZO 3.375 GM IV (PMX) 100 ML IVPB SCH ×3 (06:07→21:24)
[2017-03-02 08:00] VITALS: BP 128/74; PULSE 67; RESP 18
[2017-03-02] MEDS: morphine 2 MG INJ IV PRN ×3 (09:01→17:52)
[2017-03-02] MEDS: SODIUM HYPOCHLORITE 0.125% 473 ML BTL IRR SCH (09:03)
[2017-03-02] MEDS: METOPROLOL (XL) 25 MG TAB PO SCH (09:03)
[2017-03-02] MEDS: ALLOPURINOL 100 MG TAB PO SCH (09:04)
[2017-03-02] MEDS: LISINOPRIL 10 MG TAB PO SCH (09:04)
[2017-03-02] MEDS: 1/2 NS + KCL 20 MEQ 1,000 ML IV SCH ×3 (09:04→22:50)
--- NOTE | 2017-03-02 12:26 | PN ---
Date/Time of Note Date/Time of Note DATE: 03/02/17 TIME: 12:24 Assessment/Plan VTE Prophylaxis VTE Prophylaxis Intervention: SCD's Lines/Catheters IV C[facility] Type (from [facility]): Peripheral IV Urinary Cath still in place: No Assessment/Plan Chief Complaint/Hosp Course ASSESSMENT AND PLAN: 1. Right buttock abscess. The patient is status post incision and drainage of the right buttocks and has been started on Zosyn and Levaquin. General surgery has been consulted. We will follow up his recommendation and will continue postop care. 2. Essential hypertension, well controlled on medical management. Continue lisinopril and metoprolol. 3. Gout. Continue allopurinol. 4. Gastroesophageal reflux disease. Continue PPI. We will continue to monitor patient closely. Further recommendations, management and treatment as per clinical course. Plan to discharge home tomorrow if cleared by general surgery Problems: Subjective 24 Hr Interval Summary Free Text/Dictation Patient continues to complain of having right buttocks pain No nausea vomiting diarrhea Tolerating oral intake Exam/Review of Systems Vital Signs Vitals Vital Signs Date Time Temp Pulse Resp B/P Pulse Ox O2 Delivery O2 Flow Rate FiO2 03/01/17 19:51 99.3 71 20 129/71 96 02/28/17 17:54 Room Air 02/28/17 17:14 6.0 Intake and Output 03/01/17 03/01/17 03/02/17 15:00 23:00 07:00 Intake Total 1000 ml 2120 ml 643 ml Balance 1000 ml 2120 ml 643 ml Exam General: The patient is well-developed, Not in acute distress. HEENT: Atraumatic, normocephalic. The pupils are equal and round . Neck: Supple with full range of motion. Chest: Normal expansion of the thorax during inspiration Lungs: Clear to auscultation bilaterally Heart: Normal S1-S2, Regular rhythm and rate. Abdomen: Soft , nontender, nondistended , bowel sounds are present. Extremities: Normal to inspection, no edema no cyanosis Neurologic: Normal mental status,The patient is awake, alert and oriented . Buttocks: Erythema of the right buttocks, surgical site is dry and clean with dry packing Results Result Diagram: 03/02/17 0435 03/02/17 0435 Results 24 hrs Laboratory Tests Test 03/02/17 04:35 White Blood Count 10.6 # Red Blood Count 5.09 Hemoglobin 16.2 Hematocrit 45.9 Mean Corpuscular Volume 90.2 Mean Corpuscular Hemoglobin 31.8 Mean Corpuscular Hemoglobin Concent 35.3 Red Cell Distribution Width 13.7 Platelet Count 194 Mean Platelet Volume 9.6 Neutrophils % 60.7 Lymphocytes % 17.7 Monocytes % 8.1 Eosinophils % 12.5 H Basophils % 0.4 Nucleated Red Blood Cells % 0.0 Neutrophils # 6.5 Lymphocytes # 1.9 Monocytes # 0.9 Eosinophils # 1.3 H Basophils # 0.0 Nucleated Red Blood Cells # 0.0 Sodium Level 136 Potassium Level 4.1 Chloride Level 101 Carbon Dioxide Level 22 Anion Gap 17 H Blood Urea Nitrogen 11 Creatinine 1.11 Glucose Level 106 Calcium Level 8.7 Medications Medications Current Medications Hydromorphone HCl 0.5 mg 0.5 mg Q2H PRN IV Breakthrough PAIN; Start 02/28/17 at 17:30 Piperacillin Sod/ Tazobactam Sod 100 ml @ 200 mls/hr Q8 IVPB Last administered on 03/02/17 06:07; Admin Dose 200 MLS/HR; Start 02/28/17 at 22:00 Levofloxacin/ Dextrose 100 ml @ 100 mls/hr Q24H IVPB Last administered on 17:50; Admin Dose 100 MLS/HR; Start 02/28/17 at 18:00 Potassium Chloride/Sodium Chloride (1/2 NS + KCl 20 Meq) 1,000 ml @ 75 mls/hr [id number] IV Last administered on 03/02/17 12:12; Admin Dose 75 MLS/HR; Start 02/28/17 at 17:30 Ondansetron HCl (Zofran Inj) 4 mg Q6H PRN IV NAUSEA AND/OR VOMITING; Start 02/28 at 17:30 Acetaminophen (Tylenol Tab) 650 mg Q6H PRN PO PAIN LEVEL 1-3 OR FEVER; Start at 17:30 Acetaminophen/ Hydrocodone Bitart ([place] (5/325)) 1 tab Q6H PRN PO MODERATE PAIN LEVEL 4-6; Start 02/28/17 at 17:30 Morphine Sulfate (morphine) 2 mg Q4H PRN IV SEVERE PAIN LEVEL 7-10 Last administered on 4/9/17at 09:01; Admin Dose 2 MG; Start 02/28/17 at 17:30 Docusate Sodium (Colace) 100 mg Q12H PRN PO CONSTIPATION Last administered on 17:56; Admin Dose 100 MG; Start 02/28/17 at 17:30 Bisacodyl (Dulcolax) 5 mg DAILY PRN PO CONSTIPATION Last administered on 17:56; Admin Dose 5 MG; Start 02/28/17 at 17:30 Bisacodyl (Dulcolax Supp) 10 mg DAILY PRN [place] CONSTIPATION; Start 02/28/17 at 17: 30 Pantoprazole (Protonix Tab) 40 mg DAILY@06 PO Last administered on 03/02/17 06: 07; Admin Dose 40 MG; Start 03/01/17 at 06:00 Allopurinol (Zyloprim) 100 mg DAILY PO Last administered on 03/02/17 09:04; Admin Dose 100 MG; Start 03/01/17 at 09:00 Lisinopril (Zestril) 10 mg DAILY PO Last administered on 03/02/17 09:04; Admin Dose 10 MG; Start 02/28/17 at 18:30 Metoprolol Succinate (Toprol Xl) 25 mg DAILY PO Last administered on 03/02/17 09:03; Admin Dose 25 MG; Start 03/01/17 at 09:00 Sodium Hypochlorite ([place] (1/4 Strength)) 1 applic DAILY IRR Last administered on 03/02/17 09:03; Admin Dose 1 APPLIC; Start 03/02/17 at 09:00 EL KING MD Mar 02, 2017 12:26
[2017-03-02] MEDS: LEVOFLOXACIN 500MG/D5W (PMX) 100 ML IVPB SCH (17:24)
[2017-03-02 19:25] VITALS: BP 121/77; RESP 18
--- NOTE | 2017-03-02 20:12 | PN ---
Date/Time of Note Date/Time of Note DATE: 03/01/17 TIME: 20:09 Assessment/Plan Lines/Catheters IV Catheter Type (from [facility]): Peripheral IV Fields in Place (from [facility]): No Assessment/Plan Chief Complaint/Hosp Course 1. Right buttock cellulitis and fluid collection/abscess s/p I&D&D 02/28 -Antibiotics -IV fluids -Local care -Off loading -Nutrition optimization -Vit c 2. BMI 31 with obesity -Nutrition and exercise optimization encouraged 3. Hypertension -Nutrition medication optimization encouraged -Weight loss encouraged 4. Significant leukocytosis secondary to #1. Improving -As above 5. Hyperbilirubinemia secondary to inflammatory process -Monitor 6. Gout -medical optimization Thank you, Late entry 03/01 Problems: Subjective 24 Hr Interval Summary No pain. No f/c. No cp/sob. No cough. No louis/dizzy/visual or neuro changes. No dysuria. No abdominal pain. Exam/Review of Systems Vital Signs Vitals Vital Signs Date Time Temp Pulse Resp B/P Pulse Ox O2 Delivery O2 Flow Rate FiO2 03/02/17 19:25 97.6 76 18 121/77 96 03/02/17 08:00 Room Air 02/28/17 17:14 6.0 Intake and Output 03/01/17 03/01/17 03/02/17 15:00 23:00 07:00 Intake Total 1000 ml 2120 ml 643 ml Balance 1000 ml 2120 ml 643 ml Exam Constitutional: alert, obese, oriented, No distress Psych: nl mood/affect, No anxiety, No confusion Head: atraumatic, normocephalic Eyes: EOMI, nl conjunctiva ENMT: mucosa pink and moist, nl external ears & nose, nl lips & teeth Neck: non-tender, supple, No jvd Respiratory: normal air movement, No congested cough, No labored breathing Cardiovascular: regular rate and rhythm, No edema Gastrointestinal: soft, No distended, No rebound or guarding, No tender Musculoskeletal: nl extremities to inspection, nl gait and stance, No joint tenderness Extremities: normal pulses, No calf tenderness, No cyanosis Neurological: nl mental status, nl speech, nl strength Skin: nl turgor, rash or lesions (Right buttock wound with packing), No diaphoresis Lymph: nl lymph nodes Results Result Diagram: 03/02/17 0435 03/02/17 0435 MIKO HAYNES MD Mar 02, 2017 20:12
--- NOTE | 2017-03-02 20:13 | PN ---
Date/Time of Note Date/Time of Note DATE: 03/02/17 TIME: 20:12 Assessment/Plan Lines/Catheters IV Catheter Type (from [facility]): Peripheral IV Fields in Place (from [facility]): No Assessment/Plan Chief Complaint/Hosp Course 1. Right buttock cellulitis and fluid collection/abscess s/p I&D&D 02/28 -Antibiotics -IV fluids -Local care -Off loading -Nutrition optimization -Vit c -D/C ok from surgical standpoint 2. BMI 31 with obesity -Nutrition and exercise optimization encouraged 3. Hypertension -Nutrition medication optimization encouraged -Weight loss encouraged 4. Significant leukocytosis secondary to #1. Improving -As above 5. Hyperbilirubinemia secondary to inflammatory process -Monitor 6. Gout -medical optimization Thank you, Problems: Subjective 24 Hr Interval Summary No pain. No f/c. No cp/sob. No cough. No louis/dizzy/visual or neuro changes. No dysuria. No abdominal pain. Exam/Review of Systems Vital Signs Vitals Vital Signs Date Time Temp Pulse Resp B/P Pulse Ox O2 Delivery O2 Flow Rate FiO2 03/02/17 19:25 97.6 76 18 121/77 96 03/02/17 08:00 Room Air 02/28/17 17:14 6.0 Intake and Output 03/01/17 03/01/17 03/02/17 15:00 23:00 07:00 Intake Total 1000 ml 2120 ml 643 ml Balance 1000 ml 2120 ml 643 ml Exam Free Text/Dictation Constitutional: alert, obese, oriented, No distress Psych: nl mood/affect, No anxiety, No confusion Head: atraumatic, normocephalic Eyes: EOMI, nl conjunctiva ENMT: mucosa pink and moist, nl external ears & nose, nl lips & teeth Neck: non-tender, supple, No jvd Respiratory: normal air movement, No congested cough, No labored breathing Cardiovascular: regular rate and rhythm, No edema Gastrointestinal: soft, No distended, No rebound or guarding, No tender Musculoskeletal: nl extremities to inspection, nl gait and stance, No joint tenderness Extremities: normal pulses, No calf tenderness, No cyanosis Neurological: nl mental status, nl speech, nl strength Skin: nl turgor, rash or lesions (Right buttock wound with packing), No diaphoresis Lymph: nl lymph nodes Results Result Diagram: 03/02/17 0435 03/02/17 0435 MIKO HAYNES MD Mar 02, 2017 20:13
[2017-03-03] MEDS: 1/2 NS + KCL 20 MEQ 1,000 ML IV SCH (04:04)
[2017-03-03 05:52] LABS: ADD SCAN DIFF NO
[2017-03-03 06:04] LABS: BASOPHILS % 0.3 % (0.0-2.0); EOSINOPHILS # 1.4 10^3/ul (0.0-0.5); EOSINOPHILS % 11.1 % (0.0-7.0); HEMATOCRIT 49.3 % (42.0-52.0); HEMOGLOBIN 16.9 g/dl (14.0-18.0); LYMPHOCYTES # 2.4 10^3/ul (0.8-2.9); LYMPHOCYTES % 18.8 % (15.0-51.0); MEAN CORPUSCULAR HEMOGLOBIN 31.1 pg (29.0-33.0); MEAN CORPUSCULAR HGB CONC 34.3 g/dl (32.0-37.0); MEAN CORPUSCULAR VOLUME 90.6 fl (82.0-101.0); MEAN PLATELET VOLUME 9.5 fl (7.4-10.4); MONOCYTE # 1.1 10^3/ul (0.3-0.9); MONOCYTES % 8.5 % (0.0-11.0); NEUTROPHIL # 7.8 10^3/ul (1.6-7.5); NEUTROPHILS % 60.9 % (39.0-77.0); PLATELET COUNT 208 10^3/UL (140-415); RED BLOOD COUNT 5.44 10^6/ul (4.70-6.10); RED CELL DISTRIBUTION WIDTH 14.1 % (11.5-14.5); WHITE BLOOD COUNT 12.7 10^3/ul (4.8-10.8)
[2017-03-03] MEDS: PIPER-TAZO 3.375 GM IV (PMX) 100 ML IVPB SCH ×2 (06:04→13:49)
[2017-03-03] MEDS: PANTOPRAZOLE (EC) 40 MG TAB PO SCH (06:04)
[2017-03-03 06:20] LABS: POTASSIUM 4.5 mmol/L (3.5-5.1)
[2017-03-03 06:22] LABS: CREATININE 1.27 mg/dl (0.61-1.24)
[2017-03-03 06:23] LABS: CALCIUM 8.8 mg/dl (8.4-10.2)
[2017-03-03 08:23] VITALS: BP 132/84; RESP 20
[2017-03-03] MEDS: SODIUM HYPOCHLORITE 0.125% 473 ML BTL IRR SCH (08:54)
[2017-03-03] MEDS: LISINOPRIL 10 MG TAB PO SCH (08:55)
[2017-03-03] MEDS: METOPROLOL (XL) 25 MG TAB PO SCH (08:55)
[2017-03-03] MEDS: ALLOPURINOL 100 MG TAB PO SCH (08:55)
[2017-03-03] MEDS: morphine 2 MG INJ IV PRN (13:49)
--- NOTE | 2017-03-03 16:04 | PDOCDIS ---
Discharge Instructions CONDITION Patient Condition: Good HOME CARE INSTRUCTIONS: Special Diet: 2Gm Na ACTIVITY: Activity Restrictions: Slowly Increase Activity Rest between Activity Avoid heavy lifting FOLLOW UP/APPOINTMENTS Appointments Follow-up with general surgery 1 week EL KING MD Mar 03, 2017 16:04
[2017-03-03] MEDS ORDERED: LISI10TA2 PO (16:06)
[2017-03-03] MEDS ORDERED: DOCU-216 PO (16:06)
[2017-03-03] MEDS ORDERED: BISA5TAB6 PO (16:06)
[2017-03-03] MEDS ORDERED: HYDR-3498 PO (16:06)
[2017-03-03] MEDS ORDERED: CIPR500T4 PO (16:08)
[2017-03-03] MEDS: LEVOFLOXACIN 500MG/D5W (PMX) 100 ML IVPB SCH (17:27)
--- NOTE | 2017-03-03 18:14 | PN ---
Date/Time of Note Date/Time of Note DATE: 03/03/17 TIME: 18:14 Assessment/Plan Lines/Catheters IV Catheter Type (from [facility]): Peripheral IV Fields in Place (from [facility]): No Assessment/Plan Chief Complaint/Hosp Course 1. Right buttock cellulitis and fluid collection/abscess s/p I&D&D 02/28 -Antibiotics -IV fluids -Local care -Off loading -Nutrition optimization -Vit c -D/C ok from surgical standpoint 2. BMI 31 with obesity -Nutrition and exercise optimization encouraged 3. Hypertension -Nutrition medication optimization encouraged -Weight loss encouraged 4. Significant leukocytosis secondary to #1. Improving -As above 5. Hyperbilirubinemia secondary to inflammatory process -Monitor 6. Gout -medical optimization Thank you, Problems: Subjective 24 Hr Interval Summary No pain. No f/c. No cp/sob. No cough. No louis/dizzy/visual or neuro changes. No dysuria. No abdominal pain. Exam/Review of Systems Vital Signs Vitals Vital Signs Date Time Temp Pulse Resp B/P Pulse Ox O2 Delivery O2 Flow Rate FiO2 03/03/17 08:23 98.5 74 20 132/84 96 03/02/17 08:00 Room Air 02/28/17 17:14 6.0 Intake and Output 03/02/17 03/02/17 03/03/17 15:00 23:00 07:00 Intake Total 377 ml 1620 ml 1380 ml Balance 377 ml 1620 ml 1380 ml Exam Free Text/Dictation Constitutional: alert, obese, oriented, No distress Psych: nl mood/affect, No anxiety, No confusion Head: atraumatic, normocephalic Eyes: EOMI, nl conjunctiva ENMT: mucosa pink and moist, nl external ears & nose, nl lips & teeth Neck: non-tender, supple, No jvd Respiratory: normal air movement, No congested cough, No labored breathing Cardiovascular: regular rate and rhythm, No edema Gastrointestinal: soft, No distended, No rebound or guarding, No tender Musculoskeletal: nl extremities to inspection, nl gait and stance, No joint tenderness Extremities: normal pulses, No calf tenderness, No cyanosis Neurological: nl mental status, nl speech, nl strength Skin: nl turgor, rash or lesions (Right buttock wound with packing), No diaphoresis Lymph: nl lymph nodes Results Result Diagram: 03/03/17 0526 03/03/17 0526 MIKO HAYNES MD Mar 03, 2017 18:14
--- NOTE | 2017-03-04 03:44 | DS ---
DATE OF ADMISSION: 02/28/2017 DATE OF DISCHARGE: 03/03/2017 CONSULTANTS: Dr. Chente Haynes. PROCEDURES: Incision and drainage, excisional debridement of the right buttocks, skin and subcutane ous muscle and fascia 7 x 5 cm incision and drainage of the right buttocks fluid collection. DISCHARGE DIAGNOSES: 1. Right buttock cellulitis and recurrent abscess status post excision debridement right buttocks, skin, subcutaneous, muscle, and fascia incision and drainage of the right buttocks fluid collection status post Zosyn. We will discharge on ciprofloxacin. 2. Body mass index of 31. Diet and exercise was recommended. 3. Essential hypertension, well controlled on medical management. MEDICATIONS: 1. Bisacodyl. 2. Ciprofloxacin. 3. Colace. 4. [place]. 5. Lisinopril 6. Allopurinol. 7. Metoprolol. 8. Omeprazole. ALLERGIES: NO KNOWN DRUG ALLERGIES. DISPOSITION: Home. FOLLOWUP: Follow up with Dr. Chente Haynes in 1 week. HOSPITAL COURSE: This is a pleasant 66-year-old gentleman with past medical history of gout, arthri tis, hypertension, GERD who has been having right buttock abscess and cellulitis since 11/2016 had a n I and D on 02/10/2017. He returned back to the hospital on 02/2017 secondary to request the right buttocks abscess. Upon arrival to the emergency room, he had a CT of the abdomen and pelvis showed approximate 4.4 x 3.7 cm fluid collection in the right gluteal region and surrounding subcutaneous fatty inflammation on the skin thickening, multiple injection granulomas are seen in the bilat eral gluteal region. General surgery was consulted. The patient was started on broad spectrum IV a ntibiotics, IV fluids, made n.p.o., and was taken to OR for I and D of the abscess. The patient ayla erated the procedure and was taken to recovery room, which he has been continued on broad spectrum I V antibiotic with Zosyn. He was also continued on metoprolol and lisinopril for his blood pressure. He has been seen and evaluated by general surgeon postoperatively and at this time, the patient louis s been clear as per general surgeon for discharge. His gram wound was positive for coagulase negati ve staph and was sensitive to Levophed, Levaquin, clindamycin, doxycycline. At this time, the patie nt will be discharged home on ciprofloxacin and pain medication and he will be set up by home health for wound care and will need to be followed up with general surgeon in 1 week. Dictated By: EL KING MD PN/NTS Conf#: [id number] DID#: [id number] CC: MIKO HAYNES MD;*EndCC*
== END 2017-03-03 18:14 | disposition home health service (06) | DRG 581 ==
LOC: FTE 09:20 → MS2 11:43
PROVIDERS: ADMIT Family Medicine; ATTEND Family Medicine
PROC: 0KBN0ZZ Excision of Right Hip Muscle, Open Approach (ICD-10-PCS; principal; 2017-02-28 15:30)
DX: L02.31 Cutaneous abscess of buttock (principal); I10 Essential (primary) hypertension; E66.9 Obesity, unspecified; Z68.31 Body mass index [BMI] 31.0-31.9, adult; D72.829 Elevated white blood cell count, unspecified; E80.6 Other disorders of bilirubin metabolism; K21.9 Gastro-esophageal reflux disease without esophagitis; N40.0 Benign prostatic hyperplasia without lower urinary tract symptoms; M10.9 Gout, unspecified; L03.317 Cellulitis of buttock
CPT/HCPCS: 74177; 76536; 80048; 80053; 80061; 81003; 83036; 83735; 85025; 87070; 87075; 87081; 87102; 87116; 96361; 96365; 96375; J0330; J0692; J1170; J1956; J2270; J2405; J2543; J3010; J3370; J3480; J7030; Q9967